=== PATIENT | female | born 1945 | race Caucasian/White ===

== ENCOUNTER 2021-02-21 09:42 | Emergency (ER) | payer MEDICARE, SELFPAY ==
[2021-02-21 10:05] VITALS: BP 158/71; PULSE 77; RESP 16; TEMP 36.4; O2SAT 100
--- NOTE | 2021-02-21 10:06 | ED.FEMALEGU ---
HPI - Female Genitourinary General Chief complaint: Urogenital-Female Stated complaint: UTI Time Seen by Provider: 02/21/21 10:07 Source: patient, RN notes reviewed and old records reviewed Mode of arrival: ambulatory Limitations: no limitations History of Present Illness HPI Narrative: 75 year old female presents to [facility] with complaints of urinary pain, frequency,voiding small amounts, and foul smelling urine for the past 3 days. Patient states that she did have some lower back pain when her symptoms started but that has resolved, denies any suprapubic pain, nausea or vomiting or known fevers,chills or sweats. She has increased her oral fluid intake of water and of cranberry juice, and has been taking AZO for her discomfort with the last dose last night. Patient denies any vaginal discharge or any vaginal itching. MD elicited complaint: dysuria, back pain and other (foul smelling urine) Pertinent past history: other (past UTI with similar symptoms) Onset (ago): day(s) (3) Location of symptoms: perineum Female Urogenital Radiation: Non-Radiating Severity scale (1-10): 3 Quality of pain: aching Vaginal discharge: none Vaginal bleeding: none Urinary symptoms: Dysuria, Urgency, Frequency and Foul Smelling Urine Exacerbating factors: none Relieving factors: none Treatment prior to arrival: OTC urinary analgesics and other (increased water and cranberry juice) Related Data Allergies Allergy/AdvReac Type Severity Reaction Status Date / Time [id number] Reductase Allergy Unknown Irritable Verified 02/21/21 10:02 Inhibitor Review of Systems Review of Systems: Narrative: CONSTITUTIONAL: Denies fever, chills, or sweats. EYES: Denies visual changes, redness, or discharge. ENT: Denies rhinorrhea, congestion, sore throat, or otalgia. CARDIOVASCULAR: Denies chest pain, palpitations, or edema. RESPIRATORY: Denies cough or dyspnea. GASTROINTESTINAL: Denies abdominal pain, nausea, vomiting, or diarrhea. GENITOURINARY: Positive dysuria or hematuria. SKIN: Denies rash or itching. MUSCULOSKELETAL: Initial low back pain has since resolved,no joint pain, or myalgia. NEUROLOGIC: Denies headache, numbness, or weakness. PSYCHIATRIC: History of anxiety or depression. All systems reviewed & are unremarkable except as noted in HPI and below PMFSH Past Medical History Medical History (Updated 02/23/21 @ 11:51 by Meagan Mota NP) GERD (gastroesophageal reflux disease) Left wrist fracture Urinary tract infection Surgical History Surgical History (Updated 02/21/21 @ 10:32 by Meagan Mota NP) H/O eye surgery tear duct surgery History of tubal ligation Family History Family History Grandparent Hypertension Family history of heart disease in male family member before age 55 Mother Hypertension Father Family history of lung disease Family history of heart disease in male family member before age 55 Social History Social History (Updated 02/21/21 @ 10:26 by Meagan Mota NP) Smoking status: Never smoker Alcohol intake: never Substance use: never Living arrangements: with family Gender identity (if verbalized by the patient): Female Comments At time of signature, agree with nursing past medical, surgical, social and family history. There is no relevant family history pertinent to the presenting complaint Exam Narrative: Exam Narrative: GENERAL: Well-appearing, well-nourished, and in no acute distress. HEAD: Normocephalic, atraumatic. EYES: PERRLA and EOMI. ENT: Nares clear, no rhinorrhea or epistaxis. Mucous membranes moist. NECK: Supple.no lymphadenopathy CHEST: Clear to auscultation. No respiratory distress.SAO2 100% on room air HEART: Regular rate and rhythm. No murmur heard. Normal peripheral pulses. ABDOMEN: Soft, nontender, nondistended, normal active bowel sounds.perineal discomfort with urination , no suprapubic or CVA tenderness on
== END 2021-02-21 10:27 | disposition home or self-care (01) ==
PROVIDERS: Emergency Provider Registered Nurse
DX: N39.0 Urinary tract infection, site not specified (principal); K21.9 Gastro-esophageal reflux disease without esophagitis
CPT/HCPCS: 81003; 87077; 87086; 87088; 87186; 99213; G0463

== ENCOUNTER 2021-07-02 08:20 | Emergency (ER) | payer MEDICARE, SELFPAY ==
[2021-07-02 08:37] VITALS: PULSE 79; RESP 20; TEMP 36.2; O2SAT 100
--- NOTE | 2021-07-02 08:49 | ED.FEMALEGU ---
HPI - Female Genitourinary General Chief complaint: Urogenital-Female Stated complaint: UTI Time Seen by Provider: 07/02/21 08:49 Source: patient Mode of arrival: ambulatory Limitations: no limitations History of Present Illness HPI Narrative: Raya Nash is a 75 yo female with no PMH and who is unvaccinated, comes to [facility] with complaints of urinary tract symptoms. Has frequency, burning , bloated ; taking Azo and and was on Macrobid 2 months ago. Related Data Allergies Allergy/AdvReac Type Severity Reaction Status Date / Time [id number]-[id number] Reductase Allergy Unknown Irritable Verified 02/21/21 10:02 Inhibitor Review of Systems Review of Systems: CONSTITUTIONAL: Denies fever, chills, sweats. EYES: Denies visual changes, redness, discharge. ENT: Denies rhinorrhea, congestion, sore throat, otalgia. CARDIOVASCULAR: Denies chest pain, palpitations, edema. RESPIRATORY: Denies dyspnea, wheezing, cough GASTROINTESTINAL: Denies abdominal pain, nausea, vomiting, diarrhea. GENITOURINARY: Has dysuria, hematuria, abnormal discharge SKIN: Denies rash or itching. NEUROLOGIC: Denies numbness, or focal weakness. PSYCHIATRIC: Denies anxiety or depression. [facility], [facility] Past Medical History Medical History GERD (gastroesophageal reflux disease) Left wrist fracture Urinary tract infection Surgical History Surgical History H/O eye surgery tear duct surgery History of tubal ligation Family History Family History Grandparent Hypertension Family history of heart disease in male family member before age 55 Mother Hypertension Father Family history of lung disease Family history of heart disease in male family member before age 55 Social History Social History Smoking status: Never smoker Alcohol intake: never Substance use: never Gender identity (if verbalized by the patient): Female Comments At time of signature, I agree with nursing past medical, surgical, social and family history. There is no relevant family history pertinent to the presenting complaint. Patient to follow-up with primary care physician regarding blood pressure although she states is unusual for her to be elevated Exam Narrative: GENERAL: This is a well-nourished, well-developed patient, in mild distress. HEAD: normocephalic, atraumatic. EYES: Sclera clear/white. Vision is grossly intact. EARS: External ears normal, . Hearing grossly intact. NOSE: External nose normal without nasal discharge, nares without redness, no rhinorrhea. THROAT: Mucous membranes moist, NECK: Neck supple CARDIOVASCULAR: Regular rate and rhythm without murmurs, gallops, or rubs. RESPIRATORY: Clear to auscultation. Breath sounds equal bilaterally. No wheezes, rales, or rhonchi. GASTROINTESTINAL: Abdomen soft, non-tender, SKIN: warm, intact with no suspicious lesions or rash, good texture and turgor. NEURO: awake, alert, and oriented to person, place and time. There were no obvious focal neurologic abnormalities. Steady gait EXTREMITIES: Normal range of motion. BACK: Nontender without deformity Course Course Emergency Course: Patient comes to [facility] with urinary tract symptoms UA shows nitrate positive leukocyte 2+ positive Started on cephalexin bid; discussed home treatments and pushing po fluids. Vital Signs Vital signs: Vital Signs Temperature 97.2 F L 07/02/21 08:37 Pulse Rate 79 07/02/21 08:37 Respiratory Rate 20 07/02/21 08:37 Pulse Oximetry 100 07/02/21 08:37 Temperature 97.2 F L 07/02/21 08:37 Pulse Rate 79 07/02/21 08:37 Respiratory Rate 20 07/02/21 08:37 Blood Pressure 142/87 H 07/02/21 08:52 Pulse Oximetry 100 07/02/21 08:37 MDM - Female Genitourinary Differential Diagnosis Di
[2021-07-02 08:52] VITALS: BP 142/87
== END 2021-07-02 09:36 | disposition home or self-care (01) ==
PROVIDERS: Emergency Provider Nurse Practitioner
DX: N30.01 Acute cystitis with hematuria (principal); K21.9 Gastro-esophageal reflux disease without esophagitis
CPT/HCPCS: 81003; 87077; 87086; 87186; 99213; G0463